=== PATIENT | male | born 1965 | race Caucasian/White ===

== ENCOUNTER 2021-01-15 11:48 | Emergency (ER) | payer OTHER ==
[~2021-01-15] VITALS: Ht 175.3 cm; Wt 73.2 kg
[2021-01-15 15:37] LABS: BASOPHILS # (AUTO) 0.1 X10'3 (0-0.2); BASOPHILS % (AUTO) 0.9 % (0-1); EOSINOPHILS # (AUTO) 0.1 X10'3 (0-0.9); EOSINOPHILS % (AUTO) 0.8 % (0-6); HEMATOCRIT 37.7 % (42.0-52.0); HEMOGLOBIN 13.2 g/dl (14.0-17.9); LYMPHOCYTES # (AUTO) 1.3 X10'3 (1.1-4.8); LYMPHOCYTES % (AUTO) 17.6 % (21-51); MEAN CORPUSCULAR HEMOGLOBIN 32.8 PG (27.0-31.0); MEAN CORPUSCULAR HGB CONC 34.9 g/dL (33.0-36.5); MEAN PLATELET VOLUME 7.3 FL (7.4-10.4); MONOCYTES # (AUTO) 0.7 X10'3 (0-0.9); MONOCYTES % (AUTO) 10.2 % (2-12); NEUTROPHILS # (AUTO) 5.2 X10'3 (1.8-7.7); NEUTROPHILS % (AUTO) 70.5 % (42-75); PLATELET COUNT 267 X10'3 (140-440); RED BLOOD COUNT 4.02 X10'6 (4.70-6.10); RED CELL DISTRIBUTION WIDTH 12.6 % (11.5-14.5); WHITE BLOOD COUNT 7.3 X10'3 (4.5-11.0)
[2021-01-15] MEDS ORDERED: iohexol 350 MG/ML 50ML vial IV ONE (15:43)
[2021-01-15] MEDS ORDERED: iohexol 350MG/ML 100ml bottle IV ONE (15:44)
[2021-01-15 15:57] LABS: ALANINE AMINOTRANSFERASE 31 U/L (12-78); ALBUMIN 3.9 G/DL (3.4-5.0); ALKALINE PHOSPHATASE 82 IU/L (46-116); ANION GAP 11 (8-16); ASPARTATE AMINO TRANSFERASE 20 U/L (10-37); BILIRUBIN,TOTAL 0.4 MG/DL (0.1-1.0); BLOOD UREA NITROGEN 11 MG/DL (7-18); BUN/CREATININE RATIO 12.9 (5.4-32.0); CHLORIDE 93 MMOL/L (99-107); CREATININE 0.85 MG/DL (0.60-1.10); GLUCOSE 104 MG/DL (70-104); LIPASE 125 U/L (73-393); POTASSIUM 3.2 MMOL/L (3.5-5.1); SODIUM 128 MMOL/L (135-145); TOTAL PROTEIN 7.8 G/DL (6.4-8.2); eGFR > 90 ML/MIN
[2021-01-15] MEDS ORDERED: potassium Cl 20 mEq SR tablet PO ONE (16:10)
[2021-01-15 18:30] VITALS: BP 140/98
--- NOTE | 2021-01-30 17:55 | NUR ---
ATTEMPTED TO CALL PT REGARDING VISIT ON 01/15, PHONE IS NOT IN SERVICE
== END 2021-01-15 18:31 | disposition home or self-care (01) ==
LOC: ER 11:49
DX: I70.202 Unspecified atherosclerosis of native arteries of extremities, left leg (principal); Z88.0 Allergy status to penicillin
CPT/HCPCS: 36415; 75635; 80053; 83690; 85025; 87070; 87077; 87186; 93926; 99285; Q9967

== ENCOUNTER 2021-02-19 11:30 | Emergency (ER) | payer OTHER ==
[~2021-02-19] VITALS: Ht 172.7 cm; Wt 81.8 kg
[2021-02-19 12:00] LABS: BASOPHILS # (AUTO) 0.1 X10'3 (0-0.2); BASOPHILS % (AUTO) 0.5 % (0-1); EOSINOPHILS # (AUTO) 0.1 X10'3 (0-0.9); EOSINOPHILS % (AUTO) 0.8 % (0-6); HEMATOCRIT 33.9 % (42.0-52.0); HEMOGLOBIN 11.8 g/dl (14.0-17.9); MEAN CORPUSCULAR HEMOGLOBIN 32.6 PG (27.0-31.0); MEAN CORPUSCULAR HGB CONC 34.7 g/dL (33.0-36.5); MEAN CORPUSCULAR VOLUME 93.9 FL (78-98); MEAN PLATELET VOLUME 6.8 FL (7.4-10.4); MONOCYTES # (AUTO) 1.1 X10'3 (0-0.9); MONOCYTES % (AUTO) 9.3 % (2-12); NEUTROPHILS % (AUTO) 81.4 % (42-75); PLATELET COUNT 310 X10'3 (140-440); RED BLOOD COUNT 3.61 X10'6 (4.70-6.10); RED CELL DISTRIBUTION WIDTH 12.7 % (11.5-14.5); WHITE BLOOD COUNT 12.3 X10'3 (4.5-11.0)
[2021-02-19 12:21] LABS: ALANINE AMINOTRANSFERASE 45 U/L (12-78); ALBUMIN 3.7 G/DL (3.4-5.0); ALBUMIN/GLOBULIN RATIO 1.1 (1.1-1.5); ALKALINE PHOSPHATASE 88 IU/L (46-116); ANION GAP 12 (8-16); ASPARTATE AMINO TRANSFERASE 29 U/L (10-37); BILIRUBIN,TOTAL 0.3 MG/DL (0.1-1.0); BLOOD UREA NITROGEN 11 MG/DL (7-18); BUN/CREATININE RATIO 12.9 (5.4-32.0); C-REACTIVE PROTEIN 1.92 MG/DL (0.0-0.5); CHLORIDE 90 MMOL/L (99-107); CREATININE 0.85 MG/DL (0.60-1.10); GLUCOSE 106 MG/DL (70-104); SODIUM 126 MMOL/L (135-145); TOTAL CARBON DIOXIDE 24.4 MMOL/L (24-32); TOTAL PROTEIN 7.2 G/DL (6.4-8.2); eGFR > 90 ML/MIN
[2021-02-19] MEDS ORDERED: potassium Cl 20 mEq SR tablet PO STA (12:25)
[2021-02-20] MEDS ORDERED: SULF1TAB49 PO (11:13)
== END 2021-02-19 16:50 | disposition left against medical advice (07) ==
LOC: ER 11:31
DX: L03.116 Cellulitis of left lower limb (principal); S81.802D Unspecified open wound, left lower leg, subsequent encounter; Z88.0 Allergy status to penicillin; Z72.89 Other problems related to lifestyle; Z87.74 Personal history of (corrected) congenital malformations of heart and circulatory system; I73.9 Peripheral vascular disease, unspecified; X58.XXXD Exposure to other specified factors, subsequent encounter
CPT/HCPCS: 36415; 80053; 84145; 85025; 85651; 86140; 99283

== ENCOUNTER 2021-02-20 10:43 | Emergency (ER) | payer OTHER ==
[~2021-02-20] VITALS: Ht 172.7 cm; Wt 73.6 kg
[2021-02-20 11:08] VITALS: BP 155/63
[2021-02-20] MEDS ORDERED: SULF1TAB49 PO (11:13)
== END 2021-02-20 11:34 | disposition home or self-care (01) ==
LOC: ER 10:44
DX: S81.802A Unspecified open wound, left lower leg, initial encounter (principal); L03.116 Cellulitis of left lower limb; I73.9 Peripheral vascular disease, unspecified; Z72.89 Other problems related to lifestyle; Z88.0 Allergy status to penicillin; Z79.899 Other long term (current) drug therapy; X58.XXXA Exposure to other specified factors, initial encounter; Y93.89 Activity, other specified; Y92.89 Other specified places as the place of occurrence of the external cause; Y99.8 Other external cause status
CPT/HCPCS: 99283

== ENCOUNTER 2021-05-16 10:53 | Outpatient (CLI) | payer OTHER | END 2021-05-16 23:59 | disposition home or self-care (01) | LOC: VAS 10:53 | PROVIDERS: ATTEND Radiology Vascular & Interventional Radiology | DX: I70.201 Unspecified atherosclerosis of native arteries of extremities, right leg (principal) | CPT/HCPCS: 93926 ==

== ENCOUNTER 2021-06-04 06:16 | Emergency (ER) | payer OTHER ==
[~2021-06-04] VITALS: Ht 175.3 cm; Wt 72.7 kg
[2021-06-04] MEDS ORDERED: ondansetron/PF 4mg/2ml inj IV ONE (06:30)
[2021-06-04] MEDS ORDERED: normal saline 1000ML IV soln IVB ONE ×2 (06:30→07:30)
[2021-06-04] MEDS: morphine 4 MG/ML inj SYRINge IV PRN ×2 (06:39→10:54)
[2021-06-04 06:56] LABS: BASOPHILS # (AUTO) 0.1 X10'3 (0-0.2); BASOPHILS % (AUTO) 0.9 % (0-1); EOSINOPHILS # (AUTO) 0.1 X10'3 (0-0.9); EOSINOPHILS % (AUTO) 1.1 % (0-6); HEMATOCRIT 27.5 % (42.0-52.0); HEMOGLOBIN 9.4 g/dl (14.0-17.9); LYMPHOCYTES # (AUTO) 1.2 X10'3 (1.1-4.8); LYMPHOCYTES % (AUTO) 14.4 % (21-51); MEAN CORPUSCULAR HEMOGLOBIN 29.1 PG (27.0-31.0); MEAN CORPUSCULAR VOLUME 85.5 FL (78-98); MEAN PLATELET VOLUME 7.6 FL (7.4-10.4); MONOCYTES # (AUTO) 0.7 X10'3 (0-0.9); MONOCYTES % (AUTO) 8.5 % (2-12); NEUTROPHILS # (AUTO) 6.1 X10'3 (1.8-7.7); NEUTROPHILS % (AUTO) 75.1 % (42-75); PLATELET COUNT 253 X10'3 (140-440); RED BLOOD COUNT 3.22 X10'6 (4.70-6.10); RED CELL DISTRIBUTION WIDTH 15.1 % (11.5-14.5); WHITE BLOOD COUNT 8.2 X10'3 (4.5-11.0)
[2021-06-04 06:58] LABS: CLARITY,URINE CLEAR (Clear); COLOR,URINE YELLOW (Yellow); GLUCOSE, URINE NEGATIVE (Neg); KETONES,URINE TRACE mg/dl (Neg); LEUKOCYTE ESTERASE ,URINE NEGATIVE (Neg); NITRITES, URINE NEGATIVE (Neg); OCCULT BLOOD,URINE NEGATIVE (Neg); PH,URINE 7.5 (4.8-8.0); PROTEIN,URINE NEGATIVE (Neg); UROBILINOGEN,URINE 0.2 E.U/dL (0.2-1.0)
[2021-06-04 06:59] LABS: UA COLLECTION TYPE VOIDED
[2021-06-04 07:11] LABS: ALANINE AMINOTRANSFERASE 21 U/L (12-78); ALBUMIN 3.6 G/DL (3.4-5.0); ALBUMIN/GLOBULIN RATIO 1.1 (1.1-1.5); ALKALINE PHOSPHATASE 70 IU/L (46-116); ANION GAP 12 (8-16); ASPARTATE AMINO TRANSFERASE 16 U/L (10-37); BILIRUBIN,TOTAL 0.2 MG/DL (0.1-1.0); BLOOD UREA NITROGEN 13 MG/DL (7-18); BUN/CREATININE RATIO 14.1 (5.4-32.0); CALCIUM 8.8 MG/DL (8.5-10.1); CHLORIDE 102 MMOL/L (99-107); CREATININE 0.92 MG/DL (0.60-1.10); GLUCOSE 103 MG/DL (70-104); POTASSIUM 3.3 MMOL/L (3.5-5.1); SODIUM 135 MMOL/L (135-145); TOTAL CARBON DIOXIDE 21.2 MMOL/L (24-32); TOTAL PROTEIN 6.9 G/DL (6.4-8.2); eGFR 85 ML/MIN
[2021-06-04 07:14] LABS: LIPASE 185 U/L (73-393)
[2021-06-04] MEDS ORDERED: magnesium citrate 296ml oral solution PO ONE (07:30)
--- NOTE | 2021-06-04 07:41 | NUR ---
CONFIRMED [facility] ORDER WITH MD NESS. MD NESS CONFIRMES [facility] ORDER PER CONCERNS OF CONSTIPATION CAUSING ILEUS.
[2021-06-04] MEDS ORDERED: GOLYS PO (10:57)
[2021-06-04 11:33] VITALS: BP 170/86
== END 2021-06-04 11:35 | disposition home or self-care (01) ==
LOC: ER 06:16
DX: K59.00 Constipation, unspecified (principal); K56.7 Ileus, unspecified; Z86.79 Personal history of other diseases of the circulatory system; Z72.89 Other problems related to lifestyle; Z88.0 Allergy status to penicillin; Z79.899 Other long term (current) drug therapy
CPT/HCPCS: 36415; 71045; 74176; 80053; 81003; 83605; 83690; 84484; 85025; 96361; 96374; 96375; 96376; 99285; J2270; J2405; J7030

== ENCOUNTER 2021-07-12 06:37 | Day surgery (SDC) | payer OTHER ==
[2021-07-12] VITALS (11 sets, daily range): BP systolic 121–148; BP diastolic 68–82
[~2021-07-12] VITALS: Ht 175.3 cm; Wt 77.1 kg
[~2021-07-12 06:37] MED LIST: AMLO5TAB16 PO; CLOP-32 PO; CYCL-395 PO; LISI20TA28 PO; PANT-47 PO; ROSU10TA2 PO
[2021-07-12 08:08] LABS: BASOPHILS # (AUTO) 0.1 X10'3 (0-0.2); BASOPHILS % (AUTO) 1.1 % (0-1); EOSINOPHILS # (AUTO) 0.1 X10'3 (0-0.9); EOSINOPHILS % (AUTO) 1.3 % (0-6); HEMOGLOBIN 10.2 g/dl (14.0-17.9); LYMPHOCYTES % (AUTO) 12.5 % (21-51); MEAN CORPUSCULAR HEMOGLOBIN 28.8 PG (27.0-31.0); MEAN CORPUSCULAR VOLUME 84.8 FL (78-98); MEAN PLATELET VOLUME 6.6 FL (7.4-10.4); MONOCYTES # (AUTO) 0.6 X10'3 (0-0.9); MONOCYTES % (AUTO) 7.1 % (2-12); NEUTROPHILS # (AUTO) 6.4 X10'3 (1.8-7.7); PLATELET COUNT 347 X10'3 (140-440); RED BLOOD COUNT 3.54 X10'6 (4.70-6.10); RED CELL DISTRIBUTION WIDTH 16.6 % (11.5-14.5); WHITE BLOOD COUNT 8.2 X10'3 (4.5-11.0)
[2021-07-12] MEDS ORDERED: midazolam 1 mg/ML 2ml injection ONE ×3 (08:14→10:30)
[2021-07-12] MEDS ORDERED: heparin 1,000unit/ml 10ml vial 10 ML ONE (08:14)
[2021-07-12] MEDS ORDERED: LIDOcaine 1%/PF 5ML 10 MG/ML VIAL ONE (08:14)
[2021-07-12] MEDS ORDERED: nitroGLYCERIN-Tridil 50MG/D5W 250 ML IV ONE (08:15)
[2021-07-12] MEDS ORDERED: heparin 1,000 UNITS/NS 500ml 500 ML ONE (08:15)
[2021-07-12] MEDS ORDERED: iohexol 300mg/ml 100ml inj. ONE (08:15)
[2021-07-12] MEDS ORDERED: fentaNYL/PF 50MCG/1 ML 2ML syringe ONE ×3 (08:15→10:09)
[2021-07-12] MEDS ORDERED: atropine 0.1mg/ml 10ml syringe ONE (08:37)
[2021-07-12] MEDS ORDERED: diphenhydrAMINE 50 mg/ml inj ONE (09:20)
[2021-07-12] MEDS ORDERED: tPA-cathflo 2 MG/2 ml IV flush ONE (09:55)
[2021-07-12] MEDS ORDERED: normal saline 1000ml 1,000 ML IV SCH (11:55)
[2021-07-12] MEDS ORDERED: acetaminophen 325mg tablet PO ONE (13:05)
--- NOTE | 2021-07-12 13:05 | NUR ---
Called Dr. Puga regarding patient's back pain. Orders received for pain medication.
== END 2021-07-12 15:05 | disposition home or self-care (01) ==
LOC: SSTAY O 06:37
PROVIDERS: ATTEND Radiology Vascular & Interventional Radiology
DX: I70.242 Atherosclerosis of native arteries of left leg with ulceration of calf (principal); L97.229 Non-pressure chronic ulcer of left calf with unspecified severity; I70.232 Atherosclerosis of native arteries of right leg with ulceration of calf; L97.219 Non-pressure chronic ulcer of right calf with unspecified severity; J44.9 Chronic obstructive pulmonary disease, unspecified; F17.210 Nicotine dependence, cigarettes, uncomplicated; Z88.0 Allergy status to penicillin; Z79.01 Long term (current) use of anticoagulants; Z79.899 Other long term (current) drug therapy; Z72.89 Other problems related to lifestyle; Z20.822 Contact with and (suspected) exposure to COVID-19
CPT/HCPCS: 36415; 37220; 37225; 75625; 75716; 85025; 85347; 87635; 99152; 99153; C1725; C1760; C1769; C1885; C1894; C9803; J1200; J1644; J2250; J2997; J3010; J3490; J7030; Q9967; A6213; J0461

== ENCOUNTER 2022-08-01 06:48 | Day surgery (SDC) | payer OTHER ==
[~2022-08-01] VITALS: Ht 175.3 cm; Wt 74.0 kg
[2022-08-01] VITALS (9 sets, daily range): BP systolic 142–179; BP diastolic 72–91
[~2022-08-01 06:48] MED LIST changes: -CYCL-395 PO
[2022-08-01] MEDS ORDERED: normal saline 1000ml 1,000 ML IV PRN (07:10)
[2022-08-01] MEDS ORDERED: CYCL-394 PO (07:18)
[2022-08-01] MEDS ORDERED: ASPI-1264 PO (07:18)
[2022-08-01] MEDS ORDERED: LISI40TA13 PO (07:18)
[2022-08-01] MEDS ORDERED: CILO100T27 PO (07:18)
[2022-08-01 07:46] LABS: BASOPHILS # (AUTO) 0.1 X10'3 (0-0.2); BASOPHILS % (AUTO) 1.3 % (0-1); EOSINOPHILS % (AUTO) 0.4 % (0-6); HEMATOCRIT 42.2 % (42.0-52.0); HEMOGLOBIN 14.2 g/dl (14.0-17.9); LYMPHOCYTES # (AUTO) 0.8 X10'3 (1.1-4.8); LYMPHOCYTES % (AUTO) 14.6 % (21-51); MEAN CORPUSCULAR HEMOGLOBIN 32.4 PG (27.0-31.0); MEAN CORPUSCULAR HGB CONC 33.7 g/dL (33.0-36.5); MEAN CORPUSCULAR VOLUME 96.1 FL (78-98); MEAN PLATELET VOLUME 7.4 FL (7.4-10.4); MONOCYTES # (AUTO) 0.5 X10'3 (0-0.9); MONOCYTES % (AUTO) 8.1 % (2-12); NEUTROPHILS # (AUTO) 4.3 X10'3 (1.8-7.7); NEUTROPHILS % (AUTO) 75.6 % (42-75); PLATELET COUNT 255 X10'3 (140-440); RED BLOOD COUNT 4.39 X10'6 (4.70-6.10); WHITE BLOOD COUNT 5.7 X10'3 (4.5-11.0)
[2022-08-01 07:56] LABS: ALBUMIN 4.8 G/DL (3.4-5.0); ANION GAP 12 (8-16); BLOOD UREA NITROGEN 10 MG/DL (7-18); BUN/CREATININE RATIO 11.9 (10.0-20.0); CALCIUM 9.7 MG/DL (8.5-10.1); CHLORIDE 95 MMOL/L (99-107); CREATININE 0.84 MG/DL (0.60-1.10); GLUCOSE 101 MG/DL (70-104); SODIUM 132 MMOL/L (135-145); TOTAL CARBON DIOXIDE 25.3 MMOL/L (24-32); eGFR > 90 ML/MIN
[2022-08-01] MEDS ORDERED: LIDOcaine 1% 30ml preserv. free vial ONE (08:13)
[2022-08-01] MEDS ORDERED: fentaNYL/PF 50MCG/1 ML 2ML syringe ONE ×3 (08:13→10:38)
[2022-08-01] MEDS ORDERED: midazolam 1 mg/ML 2ml injection ONE ×3 (08:13→10:38)
[2022-08-01] MEDS ORDERED: iohexol 300mg/ml 100ml inj. ONE (08:14)
[2022-08-01] MEDS ORDERED: heparin 1,000 UNITS/NS 500ml 500 ML ONE (08:14)
[2022-08-01] MEDS ORDERED: diphenhydrAMINE 50 mg/ml inj ONE (09:33)
[2022-08-01] MEDS ORDERED: normal saline 1000ml 1,000 ML IV SCH (11:15)
== END 2022-08-01 14:25 | disposition home or self-care (01) ==
LOC: SSTAY O 06:48
PROVIDERS: ATTEND Radiology Vascular & Interventional Radiology
DX: I70.213 Atherosclerosis of native arteries of extremities with intermittent claudication, bilateral legs (principal); Z88.0 Allergy status to penicillin; Z79.899 Other long term (current) drug therapy; Z79.82 Long term (current) use of aspirin; Z72.89 Other problems related to lifestyle; Z87.891 Personal history of nicotine dependence
CPT/HCPCS: 36415; 37220; 37222; 75716; 80048; 85025; 99152; 99153; C1725; C1760; C1769; J1200; J1644; J2250; J3010; J3490; J7030; Q9967; C1894